=== PATIENT | male | born 1980 | race Caucasian/White ===

== ENCOUNTER 2019-04-19 06:39 | Day surgery (SDC) | payer OTHER, SELFPAY ==
[2019-04-18 12:19] VITALS: BMI 32.7
--- NOTE | 2019-04-19 | PATH_ITS ---
[facility] Accession Number: [id number] . 01 Material submitted: . umbilicus - UMBILICAL SINUS TRACT . 02 Diagnosis: Umbilical Sinus Tract, Excision: Skin with mild chronic inflammation and fibrosis, consistsent with fistula tract. No evidence of neoplasm. MRV 04/21/2019 1100 Local . 02 Electronically signed: . Jag Altman MD, PhD, Pathologist NPI- [id number] . 01 Gross description: . Received in formalin, labeled umbilical sinus tract, are multiple pieces of guerra-white, red-brown, firm, dull tissue (2.3 x 0.8 x 0.3 cm in aggregate). Entirely submitted in cassette A1. ([id number]) /MRV 04/20/2019 1513 Local . 02 Pathologist provided ICD-10: K63.2 . 02 CPT . 003477 Performed at: 01 [facility] [address] [facility], [place], [place] [id number] MD Dennys Mo MD Phone: [phone] Performed at: 02 [facility] [address] [place], [place] [id number] MD Lizbet Velasco MD Phone: [phone]
[2019-04-19] MEDS: LACTATED RINGERS 1,000 ML 100 ML IV (07:15)
[2019-04-19 07:16] VITALS: BP 118/81; PULSE 68; RESP 16; TEMP 36.3; O2SAT 96
[2019-04-19 07:17] VITALS: BMI 32.7
--- NOTE | 2019-04-19 07:23 | PM.HP.1 ---
History of Present Illness History of Present Illness Date Patient Seen: 04/19/19 Time Patient Seen: 07:23 Chief complaint: [id number] Narrative: 04/19-no interval change in health. Feeling well today without complaint. Please refer to H&P 03/16/19 for further detail. [birth year]33-wetl-old male who presents for evaluation of a umbilical sinus tract. He has had a persistent tract between the upper aspect of his umbilicus and the skin cyst just superior to the umbilicus in the midline. Intermittently it will drain purulence as well as some hair. I had this previously excised in office by contact center professional and shortly thereafter or its that recurred. Not actively draining no acute abdominal pain fever. No history of coronary artery disease, valvular disease, arrhythmia, peripheral vascular disease, diabetes, stroke, pulmonary or renal insufficiency. They are not on anticoagulation Patient History Medical History Pilonidal cyst (Acute) Seasonal allergies (Acute) Tobacco abuse (Acute) Surgical History History of excision of pilonidal cyst (Acute) Family & Social History Tobacco & Substance use: Smoking Status Never smoker Meds Home Medications and Allergies Home Medications Medication Instructions Recorded Confirmed Type No Known Home Medications 03/16/19 03/16/19 History Allergies Allergy/AdvReac Type Severity Reaction Status Date / Time No Known Drug Allergies Allergy Verified 04/19/19 07:24 Review of Systems Review of Systems ROS: Yes All systems reviewed with the patient and are negative except as otherwise documented Exam Vital Signs (past 8 hours): - 04/19/19 07:16 Temperature 97.3 F L Pulse Rate 68 Respiratory Rate 16 Blood Pressure 118/81 Pulse Oximetry 96 Oxygen Delivery Method Room Air Narrative Exam Narrative: General-no acute distress, well nourished HEENT-moist mucous membranes, no scleral icterus Neck-supple, no lymphadenopathy Chest- non labored respirations, clear to auscultation bilaterally Cardiac-regular rate no peripheral edema Abdomen-soft, nontender, non distended Extremities-warm, well perfused Neurological-alert and oriented, no focal deficits Assessment & Plan Assessment and plan (1) Persistent umbilical sinus: Current visit: No Status: Acute Assessment & Plan narrative: 38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 This has been present for many years and he had 1 previous superficial excision by contact center professional and excision of the sinus tract is indicated. I described the operation to him including the risks of bleeding infection recurrence. His questions have been answered and he is in agreement with this plan
--- NOTE | 2019-04-19 07:30 | SUR.OPER ---
Supine on padded OR bed, head on pillow, arms secured on padded arm boards at <90 degrees abduction, legs uncrossed, safety belt at thigh, tape over blanket over lower legs.
[2019-04-19] MEDS: CEFAZOLIN 2 GM/100 ML FROZ.PIGGY IV (07:43)
[2019-04-19] MEDS: BUPIVACAINE 0.25% (PF) VIAL 30 ML INJ (08:00)
[2019-04-19 08:18] VITALS: BP 110/68; PULSE 78; RESP 11; TEMP 36.7; O2SAT 94
[2019-04-19 08:23] VITALS: BP 100/65; PULSE 76; RESP 13; TEMP 36.7; O2SAT 95
--- NOTE | 2019-04-19 08:26 | PM.OP.1 ---
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 Surgeon: Ceasar Lutz Anesthesia Type: MAC +/- Operative Notes Findings: Umbilical sinus tract from the superior aspect of the umbilicus to the 12 o'clock position and of the skin above the umbilicus. Specimen(s): other (Umbilical sinus tract) Estimated Blood Loss (mL): 5 Procedure in detail: Patient was brought to the operating room placed supine on the table. Bilateral lower extremity compression devices were applied. He received 2 g of Ancef prior to skin incision. He received monitored anesthesia care. The skin was infiltrated with 0.25% bupivacaine. Using a lacrimal probe identified the umbilical sinus tract from the upper aspect of the umbilicus out to the skin at a the 12 o'clock position. The lacrimal probe easily passed through the tract. Using electrocautery and made incision for the subcutaneous tissues just above the umbilicus. The cyst like more Pro was encountered. The tissue surrounding the Rachele probe was then excised in its entirety and passed off the field as specimen. Hemostasis was achieved. The wound was irrigated. Then the subcutaneous tissues were closed with 3 0 Vicryl and skin closed with a running 4 0 Monocryl suture. Patient tolerated procedure well. Complications: none Post-operative Condition: stable Disposition: same day surgery
[2019-04-19 08:28] VITALS: BP 101/64; PULSE 78; RESP 12; O2SAT 94
[2019-04-19 08:34] VITALS: BP 110/61; PULSE 69; RESP 12; O2SAT 93
== END 2019-04-19 08:40 | disposition home or self-care (01) ==
PROVIDERS: PCP General Practice; Referring Provider General Practice; Visit Provider Surgery
PROC: (CPT 22902; principal; 2019-04-19 07:45)
DX: K63.2 Fistula of intestine (principal)
CPT/HCPCS: 22902; J0690; J1100; J2250; J2405; J2704; J3010

== ENCOUNTER 2024-11-17 15:35 | Emergency (ER) | payer OTHER, SELFPAY ==
[2024-11-17 15:48] VITALS: BP 143/82; PULSE 72; RESP 14; TEMP 37.2; O2SAT 97; BMI 31.8
--- NOTE | 2024-11-17 16:40 | ED.FEVER ---
HPI - Fever <Dov Roberto PA-C - Last Filed: 11/17/24 20:16> General Chief Complaint: Fever Stated Complaint: fever 3 days, side pain, headaches Time Seen by Provider: 11/17/24 16:40 Source: patient Mode of arrival: Ambulatory History of Present Illness HPI Narrative: This is a 44-year-old male presents emergency department due to tactile fevers for the last couple of nights as well as bilateral lower back pain. He was states that his urine has been darker color than usual. He states that he has been sweating more at night. Denies any URI symptoms but does report increased fatigue. Denies any significant chest pain or shortness breath. No recorded temperatures. Also does report some abdominal ?fullness? in his mid having flatulence and burping the last couple of days increasingly. Related Data Previous Rx's ?Medication ?Instructions ?Recorded acetaminophen 325 mg capsule 650 mg (2 x 325 mg) PO QID PRN 04/19/19 (Tylenol) pain #60 caps oxycodone 5 mg tablet 5 mg PO Q6H PRN pain #20 tabs 04/19/19 azithromycin 500 mg tablet See Rx Instructions PO .COMPLEX #3 11/17/24 tabs Allergies Allergy/AdvReac Type Severity Reaction Status Date / Time No Known Drug Allergies Allergy Verified 11/17/24 15:48 Review of Systems <Dov Roberto PA-C - Last Filed: 11/17/24 20:16> Review of Systems Narrative: GENERAL: Reports tactile fevers and chills HEENT: Denies sinus pain, ear pain, sore throat, difficulty swallowing, dizziness. RESPIRATORY: Denies dyspnea, cough, wheezing, hemoptysis, sputum. CARDIOVASCULAR: Denies chest pain, palpitations, orthopnea, edema, GASTROINTESTINAL: Denies nausea, vomiting, abdominal pain, diarrhea, constipation, melena. : Reports darker urine MUSCULOSKELETAL: Reports lower back pain SKIN: Denies rash, skin lesions, or other NEUROLOGIC: Denies weakness, headache, numbness, change in speech, confusion, seizures, incoordination. PSYCHIATRIC: No concerning psychosocial issues. 12 point review of systems is negative except for those stated above Patient History <Dov Roberto PA-C - Last Filed: 11/17/24 20:16> Medical History (Updated 11/17/24 @ 20:13 by oDv Roberto PA-C) Pilonidal cyst Seasonal allergies Tobacco abuse Surgical History History of excision of pilonidal cyst Social History household members: spouse Smoking Status: Unknown if ever smoked alcohol intake: current Smoking Status: Unknown if ever smoked alcohol intake frequency: a few times a week Exam <Dov Roberto PA-C - Last Filed: 11/17/24 20:16> Narrative Exam Narrative: GENERAL: Well-developed patient, in mild distress. HEAD: Atraumatic. Normocephalic. EYES: Pupils equal round and reactive. Extraocular motions intact. No scleral icterus. No injection or drainage. ENT: Nose without bleeding, purulent drainage. Throat without erythema, tonsillar hypertrophy or exudate. Airway patent. NECK: Trachea midline. Non tender EXTREMITIES: No edema or joint tenderness. NEURO: AOx3. SKIN: No rash or erythema of visible areas Back: No CVA tenderness palpation Lungs: Clear to auscultation Abdomen, generalized tenderness to palpation Initial Vital Signs Initial Vital Signs: Vital Signs Temperature 99.0 F 11/17/24 15:48 Pulse Rate 72 11/17/24 15:48 Respiratory Rate 14 11/17/24 15:48 Blood Pressure 143/82 H 11/17/24 15:48 Pulse Oximetry 97 11/17/24 15:48 Oxygen Delivery Method Room Air 11/17/24 15:48 <Drake Vanessa MD - Last Filed: 11/18/24 03:33> Initial Vital Signs Initial Vital Signs: Vital Signs Temperature 99.0 F 11/17/24 15:48 Pulse Rate 72 11/17/24 15:48 Respiratory Rate 14 11/17/24 15:48 Blood Pressure 143/82 H 11/17/24 15:48 Pulse Oximetry 97 11/17/24 15:48 Oxygen Delivery Method Room Air 11/17/24 15:48 Course <Dov Roberto PA-C - Last Filed: 11/17/24 20:16> Orders Ordered: ED Orders 11/17/24 16:05 Urine Microscopic Stat 11/17/24 16:56 XR chest 2V Stat 11/17/24 17:16 Covid-19 + FLU A/B + RSV - PCR Stat 11/17/24 17:40 Complete Blood Count AUTO DIFF Stat Comprehensive Metabolic Panel Stat 11/17/24 18:17 CT abdomen pelvis w con Stat Vital Signs Vital signs: Vital Signs - 8 hr 11/17/24 20:24 Pulse Rate 68 Respiratory Rate 15 Blood Pressure 140/81 Pulse Oximetry 99 Oxygen Delivery Method Room Air <Drake Vanessa MD - Last Filed: 11/18/24 03:33> Orders Ordered: ED Orders 11/17/24 16:05 Urine Microscopic Stat 11/17/24 16:56 XR chest 2V Stat 11/17/24 17:16 Covid-19 + FLU A/B + RSV - PCR Stat 11/17/24 17:40 Complete Blood Count AUTO DIFF Stat Comprehensive Metabolic Panel Stat 11/17/24 18:17 CT abdomen pelvis w con Stat Vital Signs Vital signs: Vital Signs - 8 hr 11/17/24 20:24 Pulse Rate 68 Respiratory Rate 15 Blood Pressure 140/81 Pulse Oximetry 99 Oxygen Delivery Method Room Air MDM - Fever <Dov Roberto PA-C - Last Filed: 11/17/24 20:16> Lab Data 11/17/24 17:40 11/17/24 17:40 Labs: Lab Results 11/17/24 11/17/24 11/17/24 Range/Units 16:05 17:16 17:40 WBC 3.3 L (4.5-11.0) X10^3/uL RBC 5.19 (4.5-5.9) X10^6/uL Hgb 15.4 (13.5-17.5) g/dL Hct 44.4 (41-53) % MCV 85.5 (80-100) fL MCH 29.6 (26-34) PG MCHC 34.7 (30-36) % RDW 13.0 (11.6-14.8) % Plt Count 134 L (150-400) X10^3/uL Neut % (Auto) 53.6 (50-75) % Lymph % (Auto) 29.6 (25-40) % [place] % (Auto) 15.3 H (3-14) % Eos % (Auto) 0.3 L (2-4) % Baso % (Auto) 1.2 (0-2) % Neut # (Auto) 1800 (6242-6417) /uL Lymph # (Auto) 1000 L (7150-1913) /uL [place] # (Auto) 500 (0-900) /uL Eos # (Auto) 0 (0-450) /uL Baso # (Auto) 0 (0-100) /uL Sodium 134 L (137-145) mmol/L Potassium 3.8 (3.4-5.1) mmol/L Chloride 102 (98-107) mmol/L Carbon Dioxide 25 (22-32) mmol/L BUN 13 (9-20) mg/dL Creatinine 0.85 (0.66-1.25) mg/dL Estimated GFR > 60 (>60) mL/min BUN/Creatinine Ratio 15.3 (6-22) Glucose 104 H (70-99) mg/dL Calcium 8.7 (8.4-10.2) mg/dL Total Bilirubin 1.3 (0.2-1.3) mg/dL AST 44 (17-59) IU/L ALT 70 H (<50) IU/L Alkaline Phosphatase 71 (38-126) U/L Total Protein 7.1 (6.3-8.2) g/dL Albumin 4.2 (3.5-5.0) g/dL Globulin 2.9 (1.7-4.1) g/dL Albumin/Globulin Ratio 1.4 (1.0-2.8) Urine RBC 1-5/hpf (0-5/HPF) Urine WBC 0-1/hpf (0-5/HPF) Ur Squamous Epith Cells 0-1 /hpf (0-5/HPF) Urine Bacteria None seen (None) Ur Culture Indicated? Cult not indicated Vol Urine Centrifuged 10ml (spun) SARS-CoV-2 (PCR) Negative (Negative) Influenza A (RT-PCR) Flu a negative (NEGATIVE) Influenza B (RT-PCR) Flu b negative (NEGATIVE) RSV (PCR) Negative (Negative) Urine Dip Bedside Urine Glucose Negative Bedside Urine Bilirubin - Negative Bedside Urine Ketone - Negative Urine Specific [place] 1.020 Bedside Urine Occult Blood ++ Bedside Urine pH 6.0 Bedside Urine Protein +/- 15 Bedside Urine Urobilinogen - Negative Bedside Urine Nitrite - Negative Bedside Urine Leukocytes - Negative Esterase Imaging Data Chest x-ray: Radiologist's Impression: [address] [address] XRay Report Signed Patient: Fei Reyes MR#: [id number] : 1980 Acct:[id number] Age/Sex: 44 / M Date of Service: 11/17/24 Loc: ED Accession Number: [id number] Procedure: XR chest 2V Ordering Provider: Dov Roberto PA-C PROCEDURE: XR CHEST 2V INDICATIONS: Back pain TECHNIQUE: 2 views of the chest were acquired. COMPARISON: None. FINDINGS: Surgical changes and devices: None. Lungs and pleura: Lungs are clear. No pleural effusions or pneumothorax. Mediastinum: Mediastinal contours are normal. Heart size is normal. Bones and chest wall: No suspicious bony abnormalities. Soft tissues appear unremarkable. IMPRESSION: No acute cardiopulmonary abnormalities or focal consolidation. Dictated by: Leo Villa M.D. on 11/17/2024 at 17:13 Approved by: Loe Villa M.D. on 11/17/2024 at 17:14 CT scan - abdomen/pelvis: Radiologist's Impression: [address] [address] [address] Scan Report Signed Patient: Fei Reyes MR#: [id number] : 1980 Acct:[id number] Age/Sex: 44 / M Date of Service: 11/17/24 Loc: ED Accession Number: [id number] Procedure: CT abdomen pelvis w con Ordering Provider: Dov Roberto PA-C PROCEDURE: CT ABDOMEN PELVIS W CON INDICATIONS: Bilat back pain, hematuria TECHNIQUE: After the administration of intravenous contrast, axial sections acquired from the lung bases to the pubic symphysis. Coronal and sagittal reformats were performed. For radiation dose reduction, the following was used: automated exposure control, adjustment of mA and/or kV according to patient size. COMPARISON: None. FINDINGS: Image quality: Diagnostic. Lower Chest: No significant findings. ABDOMEN: Liver: Suspected small hemangioma in the inferior right liver measuring 1.4 cm, (2/60). Gallbladder: No radiopaque gallstones or wall thickening. Biliary ducts: No biliary dilation. Pancreas: No ductal dilation. No peripancreatic fluid collection. Spleen: Measures 14.3 cm. Mildly enlarged. Adrenal Glands: No adrenal nodules. Kidneys and Ureters: No hydronephrosis. No solid mass. No complex renal cystic lesion which requires follow up. Stomach and Bowel: Normal colonic caliber, without significant wall thickening. Normal appendix. Peritoneum: No abnormal intraperitoneal fluid. No free air. MDM Narrative Medical decision making narrative: ED course: This is a 44-year-old male presenting to the emergency department due to the nonspecific symptoms. Infectious workup ordered on patient request. Chest x-ray was x-ray negative, viral panel negative. Patient was reporting some discomfort and CT abdomen and pelvis ordered showed nonspecific findings. Patient was follow up regarding the splenomegaly with the PCP. Patient may be experiencing some bacterial gastroenteritis and azithromycin will be empirically prescribed. Lab work otherwise unremarkable. Patient was was noted to have hematuria although CT negative for any stones and no evidence of UTI. He will follow up with his PCP to discuss symptoms continue for possible Urology referral CC: Fevers Complicating co-morbidities: None Data collected from: Previous notes Medical records reviewed: Patient was not been to this emergency department in the past. Differential considered, but not limited to: Nephrolithiasis, UTI Exam documented above, pertinent findings include: Generalized abdominal tenderness to palpation, no CVA tenderness Lab Test results independently reviewed as above. Pertinent findings: UA positive for blood. CBC and CMP unremarkable, respiratory panel negative Imaging studies independently reviewed: CT showed mild splenomegaly otherwise nonspecific Scores Used: None MIPS Elements: None Consultations: None Treatments: None Re-evaluations: None Discussion: Discussed plan with the patient was comfortable with the plan Diagnosis: Bacterial gastroenteritis Disposition: see below, along with detailed discharge instructions that have been reviewed with patient as well as indications for ED re-evaluation and additional outpatient follow up <Drake Vanessa MD - Last Filed: 11/18/24 03:33> Lab Data Labs: Lab Results 11/17/24 11/17/24 11/17/24 Range/Units 16:05 17:16 17:40 WBC 3.3 L (4.5-11.0) X10^3/uL RBC 5.19 (4.5-5.9) X10^6/uL Hgb 15.4 (13.5-17.5) g/dL Hct 44.4 (41-53) % MCV 85.5 (80-100) fL MCH 29.6 (26-34) PG MCHC 34.7 (30-36) % RDW 13.0 (11.6-14.8) % Plt Count 134 L (150-400) X10^3/uL Neut % (Auto) 53.6 (50-75) % Lymph % (Auto) 29.6 (25-40) % [place] % (Auto) 15.3 H (3-14) % Eos % (Auto) 0.3 L (2-4) % Baso % (Auto) 1.2 (0-2) % Neut # (Auto) 1800 (9826-4597) /uL Lymph # (Auto) 1000 L (3449-7268) /uL [place] # (Auto) 500 (0-900) /uL Eos # (Auto) 0 (0-450) /uL Baso # (Auto) 0 (0-100) /uL Sodium 134 L (137-145) mmol/L Potassium 3.8 (3.4-5.1) mmol/L Chloride 102 (98-107) mmol/L Carbon Dioxide 25 (22-32) mmol/L BUN 13 (9-20) mg/dL Creatinine 0.85 (0.66-1.25) mg/dL Estimated GFR > 60 (>60) mL/min BUN/Creatinine Ratio 15.3 (6-22) Glucose 104 H (70-99) mg/dL Calcium 8.7 (8.4-10.2) mg/dL Total Bilirubin 1.3 (0.2-1.3) mg/dL AST 44 (17-59) IU/L ALT 70 H (<50) IU/L Alkaline Phosphatase 71 (38-126) U/L Total Protein 7.1 (6.3-8.2) g/dL Albumin 4.2 (3.5-5.0) g/dL Globulin 2.9 (1.7-4.1) g/dL Albumin/Globulin Ratio 1.4 (1.0-2.8) Urine RBC 1-5/hpf (0-5/HPF) Urine WBC 0-1/hpf (0-5/HPF) Ur Squamous Epith Cells 0-1 /hpf (0-5/HPF) Urine Bacteria None seen (None) Ur Culture Indicated? Cult not indicated Vol Urine Centrifuged 10ml (spun) SARS-CoV-2 (PCR) Negative (Negative) Influenza A (RT-PCR) Flu a negative (NEGATIVE) Influenza B (RT-PCR) Flu b negative (NEGATIVE) RSV (PCR) Negative (Negative) Urine Dip Bedside Urine Glucose Negative Bedside Urine Bilirubin - Negative Bedside Urine Ketone - Negative Urine Specific [place] 1.020 Bedside Urine Occult Blood ++ Bedside Urine pH 6.0 Bedside Urine Protein +/- 15 Bedside Urine Urobilinogen - Negative Bedside Urine Nitrite - Negative Bedside Urine Leukocytes - Negative Esterase Discharge Plan Departure Patient Disposition: Home Clinical Impression: Gastroenteritis Instructions: DI for Bacterial Gastroenteritis -- Adult Activity Restrictions/Additional Instructions: Thank you for coming to the [facility] Emergency Department today. As we discussed your workup today was overall reassuring. Chest x-ray was negative for pneumonia. The lab work was overall reassuring although it did show a mildly elevation of 1 of your liver enzymes which would benefit from investigation with your primary care provider. CT did show mild splenomegaly as well. Please be careful to avoid any contact sports or exertional lifting to able to follow up with the your PCP. You may be experiencing bacterial gastroenteritis. You may take the antibiotics as prescribed. The COVID and flu testing was negative I sent the medication to [facility] in [place] Please return to the emergency department if you develop any severe new or worsening abdominal pain, or any other concerning signs or symptoms. I hope you feel better soon. Please follow up with your primary care provider within a week if your symptoms continue. If you do not have a primary care provider please contact the [facility] Resource line at [phone]. They will ask some questions about your medical history and help you get set up with a provider in the community. Prescriptions: New azithromycin 500 mg tablet See Rx Instructions .ROUTE .COMPLEX Qty: 3 0RF Rx Instructions: For 500 mg dose pack: take 500 mg once daily for 3 days No Action oxycodone 5 mg tablet 5 mg PO Q6H PRN (Reason: pain) Qty: 20 0RF acetaminophen [Tylenol] 325 mg capsule 650 mg PO QID PRN (Reason: pain) Qty: 60 0RF Referrals: Sayra Carrera MD [Primary Care Provider, Medical] Stand Alone Forms: Patient Portal/API ED Sign-out <Drake Vanessa MD - Last Filed: 11/18/24 03:33> Cosign ED Attending Cosciarraature Attestation: I was immediately available in the department for consultation. Patient seen independently by mid-level provider. This documentation has been reviewed. Supervised by Drake Vanessa MD
--- NOTE | 2024-11-17 16:56 | DI.RAD.S_ITS ---
PROCEDURE: XR CHEST 2V INDICATIONS: Back pain TECHNIQUE: 2 views of the chest were acquired. COMPARISON: None. FINDINGS: Surgical changes and devices: None. Lungs and pleura: Lungs are clear. No pleural effusions or pneumothorax. Mediastinum: Mediastinal contours are normal. Heart size is normal. Bones and chest wall: No suspicious bony abnormalities. Soft tissues appear unremarkable. IMPRESSION: No acute cardiopulmonary abnormalities or focal consolidation. Dictated by: Leo Villa M.D. on 11/17/2024 at 17:13 Approved by: Leo Villa M.D. on 11/17/2024 at 17:14
[2024-11-17 17:25] LABS: Culture Indicated Urine Cult Not Indicated
[2024-11-17 18:03] LABS: Influenza A - CEPHEID Flu A NEGATIVE (NEGATIVE); Influenza B - CEPHEID Flu B NEGATIVE (NEGATIVE)
[2024-11-17 18:06] LABS: Alanine Aminotransferase 70 IU/L (<50); Albumin 4.2 g/dL (3.5-5.0); Albumin Globulin Ratio 1.4 (1.0-2.8); Alkaline Phosphatase 71 U/L (38-126); Blood Urea Nitrogen 13 mg/dL (9-20); Calcium 8.7 mg/dL (8.4-10.2); Carbon Dioxide 25 mmol/L (22-32); Chloride 102 mmol/L (98-107); Estimated Glomerular Filt Rate > 60 mL/min (>60); Globulin 2.9 g/dL (1.7-4.1); Glucose 104 mg/dL (70-99); HEMOLYSIS 19 (0-50); Potassium 3.8 mmol/L (3.4-5.1); Sodium 134 mmol/L (137-145); Total Protein 7.1 g/dL (6.3-8.2)
[2024-11-17 18:11] LABS: COVID-19 CEPHEID 4-PLEX PCR Negative (Negative)
[2024-11-17 18:12] LABS: Add Manual Diff / Slide Review NO; Hematocrit 44.4 % (41-53); Hemoglobin 15.4 g/dL (13.5-17.5); Lymphocytes Absolute Auto 1000 /uL (1100-4500); Mean Corpuscular HGB Conc 34.7 % (30-36); Mean Corpuscular Hemoglobin 29.6 PG (26-34); Mean Corpuscular Volume 85.5 fL (80-100); Platelet Count 134 X10^3/uL (150-400)
--- NOTE | 2024-11-17 18:17 | DI.CT.S_ITS ---
PROCEDURE: CT ABDOMEN PELVIS W CON INDICATIONS: Bilat back pain, hematuria TECHNIQUE: After the administration of intravenous contrast, axial sections acquired from the lung bases to the pubic symphysis. Coronal and sagittal reformats were performed. For radiation dose reduction, the following was used: automated exposure control, adjustment of mA and/or kV according to patient size. COMPARISON: None. FINDINGS: Image quality: Diagnostic. Lower Chest: No significant findings. ABDOMEN: Liver: Suspected small hemangioma in the inferior right liver measuring 1.4 cm, (2/60). Gallbladder: No radiopaque gallstones or wall thickening. Biliary ducts: No biliary dilation. Pancreas: No ductal dilation. No peripancreatic fluid collection. Spleen: Measures 14.3 cm. Mildly enlarged. Adrenal Glands: No adrenal nodules. Kidneys and Ureters: No hydronephrosis. No solid mass. No complex renal cystic lesion which requires follow up. Stomach and Bowel: Normal colonic caliber, without significant wall thickening. Normal appendix. Peritoneum: No abnormal intraperitoneal fluid. No free air. Ventral Wall: No significant ventral hernia. Abdominal Nodes: No retroperitoneal or mesenteric adenopathy by size criteria. Vessels: Aorta and inferior vena cava are normal in size. PELVIS: Pelvic Organs: Trace free fluid in the pelvis. Bladder: No bladder wall thickening, accounting for underdistention. Pelvic Nodes: No enlarged lymph nodes. Miscellaneous: No inguinal hernias are seen. Right hydrocele. Bones: No aggressive osseous abnormality. IMPRESSION: 1. Trace free fluid in the pelvis. This is concerning for occult infectious/inflammatory etiology. 2. Normal appendix. No hydronephrosis. 3. Suspected small hemangioma in the right liver. 4. Mild splenomegaly. Dictated by: Yuriy Padilla M.D. on 11/17/2024 at 19:57 Approved by: Yuriy Padilla M.D. on 11/17/2024 at 20:04
[2024-11-17 20:24] VITALS: BP 140/81; PULSE 68; RESP 15; O2SAT 99
== END 2024-11-17 20:26 | disposition home or self-care (01) ==
PROVIDERS: Emergency Provider Physician Assistant Medical; PCP General Practice
DX: K52.9 Noninfective gastroenteritis and colitis, unspecified (principal); R50.9 Fever, unspecified
CPT/HCPCS: 36415; 71046; 74177; 80053; 81003; 81015; 85025; 87637; 99282; 99284; Q9967